=== PATIENT | female | born 1985 ===

== ENCOUNTER 2016-07-22 18:46 | Emergency (ER) | payer MEDICAID, OTHER ==
--- NOTE | 2016-07-22 19:31 | UC ---
General HPI - HPI Summary HPI Summary: The patient comes in today for: 1. Fall at work: Onset: This morning: When she work up, she had pain the upper thoracic and lower cervical spine. After falling, it was worse. Palliative/provocative: Moving head from side to side makes the neck pain worse. Quality: Aches. Region/radiation: Upper thoracic and lower cervical spine. Severity: 8.5/10 neck, 6/10 hand. Time: Constant. 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 She tripped and fell. She hit her left hand and "tweeked" her neck--she did not land on her neck. She had pain in the neck prior to the fall. Weakness/numbness: none except weakness in the left hand "because it hurts to pick things up." Treatment: She took Tylenol 1 PM for her neck. * - History of Current Complaint Stated Complaint: NECK & WRISTS INJURY FROM FALL Time Seen by Provider: 07/22/16 19:23 Hx Obtained From: Patient - Allergy/Home Medications Allergies/Adverse Reactions: Allergies Allergy/AdvReac Type Severity Reaction Status Date / Time No Known Allergies Allergy Verified 07/22/16 19:29 Home Medications: Home Medications Bupropion HCl [Wellbutrin Sr] 150 mg PO 07/22/16 [History] Risperidone 1 tab PO DAILY 07/22/16 [History Confirmed 07/22/16] PMH/Surg Hx/FS Hx/Imm Hx Previously Healthy: No Endocrine History Of: Denies: Diabetes, Thyroid Disease, Hyperthyroidism, Hypothyroidism, Dyslipidemia Cardiovascular History Of: Denies: Cardiac Disorders, Hypertension, Pacemaker/ICD, Myocardial Infarction , Congestive Heart Failure, Atrial Fibrillation, Deep Vein Thrombosis, Bleeding Disorders Respiratory History Of: Denies: COPD, Asthma, Bronchitis, Pneumonia, Pulmonary Embolism GI/ History Of: Denies: Gastroesophageal Reflux, Ulcer, Gastrointestinal Bleed, Gall Bladder Disease, Kidney Stones, Diverticulitis, Renal Disease, Urosepsis Neurological History Of: Denies: TIA, CVA, Dementia, Seizures, Migraine Psychological History Of: Reports: Depression, Bipolar Disorder, Post Traumatic Stress Disorder Denies: Anxiety, Schizophrenia Cancer History Of: Denies: Lung Cancer, Colorectal Cancer, Breast Cancer, Prostate Cancer, Cervical Cancer Other History Of: Negative For: HIV, Hepatitis B, Hepatitis C, Anticoagulant Therapy - Family History Known Family History: Positive: Cardiac Disease, Hypertension - Social History Occupation: Employed Full-time Alcohol Use: None Substance Use Type: None Smoking Status (MU): Former Smoker Review of Systems Constitutional: Negative Skin: Negative Eyes: Negative ENT: Negative Respiratory: Negative Cardiovascular: Negative Gastrointestinal: Negative Genitourinary: Negative Motor: Negative Musculoskeletal: Arthralgia, Myalgia All Other Systems Reviewed And Are Negative: Yes Physical Exam Triage Information Reviewed: Yes Appearance: Well-Appearing, No Pain Distress, Well-Nourished, Other: - Sitting still, she does not show signs of pain, but when moving her head, there is more. Vital Signs Reviewed: Yes Eyes: Positive: Conjunctiva Clear. Negative: Discharge ENT: Positive: Hearing grossly normal. Negative: Pharyngeal erythema, Nasal congestion, Nasal drainage, TM bulging, TM dull, TM red, Tonsillar swelling, Tonsillar exudate Dental: Negative: Gross Decay/Caries @, Dental Fracture @ Neck: Positive: Supple, No Lymphadenopathy. Negative: Nontender - There is tenderness to palpation of the musculature of the upper thoracic spine area. Respiratory: Positive: Chest non-tender, Lungs clear, No respiratory distress, No accessory muscle use. Negative: Crackles, Wheezing Cardiovascular: Positive: RRR, No Murmur Abdomen Description: Positive: Nontender, No Organomegaly, Soft. Negative: Distended, Guarding Musculoskeletal: Positive: No Edema, ROM Limited @ - She had very limited range of motion at extremes of motion (flexion, extension, bilateral rotation and bilateral flexion), but no tenderness to the neck--just the upper thoracic spine area musculature., Other: - Arms: The strength is appropriate for age and symmetrical. The DTR of the triceps, biceps, brachioradialis were 2+/2 x 2. Neurological: Positive: Alert, Muscle Tone Normal, Other: Psychological: Positive: Age Appropriate Behavior, Consolable Skin: Negative: rashes, breakdown Diagnostics - Laboratory Diagnostic Studies Completed/Ordered: Right hand x-ray: IMPRESSION: Normal left hand radiograph. - Radiology No standard instances Xray Interpretation: No Acute Changes Radiology Interpretation Completed By: Radiologist Course/Dx - Differential Dx - Multi-Symptom Provider Diagnoses: Contusion of the left hand. Muscular strain of the upper back/trapezius. Discharge - Discharge Plan Condition: Stable Disposition: HOME Patient Education Materials: Contusion in Adults (ED), Thoracic Back Strain (ED ) Forms: *Work Release Referrals: Kyra Azar PA [Primary Care Provider] - 1 Week (Please see your primary care provider in a week to see how you are doing. If you get worse, please be seen sooner.)
[2016-07-22] MEDS ORDERED: Ketorolac INJ* 60 MG/2 ML VIAL IM ONE (19:41)
--- NOTE | 2016-07-22 20:18 | RAD ---
INDICATION: The base of the left lung after fall COMPARISON: None. TECHNIQUE: 2 views of the left hand were obtained. FINDINGS: The adequately corticated bones are in normal alignment. No significant focal osseous abnormality or fracture is seen. Joint spaces appear maintained. IMPRESSION: Normal left hand radiograph. If the patient's symptoms persist, follow-up imaging is recommended.
== END 2016-07-22 20:36 | disposition home or self-care (01) ==
LOC: UCEAST 18:46
DX: S60.222A Contusion of left hand, initial encounter (principal); S29.012A Strain of muscle and tendon of back wall of thorax, initial encounter; W01.0XXA Fall on same level from slipping, tripping and stumbling without subsequent striking against object, initial encounter; Y93.F9 Activity, other caregiving; Y92.129 Unspecified place in nursing home as the place of occurrence of the external cause; Y99.0 Civilian activity done for income or pay; Z87.891 Personal history of nicotine dependence
CPT/HCPCS: 96372; 99202; G0463; J1885

== ENCOUNTER 2016-11-21 10:17 | Emergency (ER) | payer SELFPAY ==
--- NOTE | 2016-11-21 11:51 | UC ---
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 and she felt a pop in her lower abck pain in the lumbar area that radites to both sides constant dull aching pain any movement increases the pain nothing lessens the pain hasn't taken for pain denies fever , incontinence, no unintentinoal weight loss over the last 6 months - History of Current Complaint Chief Complaint: UCBackPain Stated Complaint: BACK INJURY Time Seen by Provider: 11/21/16 11:45 Hx Obtained From: Patient Hx Last Menstrual Period: "COUPLE MONTHS AGO"-IRREGULAR - Allergies/Home Medications Allergies/Adverse Reactions: Allergies Allergy/AdvReac Type Severity Reaction Status Date / Time No Known Allergies Allergy Verified 11/21/16 10:45 PMH/Surg Hx/FS Hx/Imm Hx Previously Healthy: Yes Psychological History: Depression, Bipolar Disorder, Post Traumatic Stress Disorder Other History Of: Negative For: HIV, Hepatitis B, Hepatitis C, Anticoagulant Therapy - Surgical History Surgical History: Yes Surgery Procedure, Year, and Place: Removal of ovarian cysts and polyps - Family History Known Family History: Positive: Cardiac Disease, Hypertension - Social History Alcohol Use: None Substance Use Type: None Smoking Status (MU): Former Smoker Type: Cigarettes When Did the Patient Quit Smoking/Using Tobacco: 5 YEARS AGO - Immunization History Most Recent Influenza Vaccination: 2015/2016 season Review of Systems Constitutional: Negative Skin: Negative Eyes: Negative ENT: Negative Respiratory: Negative Cardiovascular: Negative Gastrointestinal: Negative Genitourinary: Negative Motor: Negative Neurovascular: Negative Musculoskeletal: Other: - lower back pain Neurological: Negative Psychological: Negative All Other Systems Reviewed And Are Negative: Yes Physical Exam Triage Information Reviewed: Yes Appearance: No Pain Distress, Well-Nourished, Obese Vital Signs: Initial Vital Signs Temp 97.9 F 11/21/16 10:46 Pulse 77 11/21/16 10:46 Resp 16 11/21/16 10:46 BP 119/69 11/21/16 10:46 Pulse Ox 99 11/21/16 10:46 Vital Signs Reviewed: Yes Eyes: Positive: Conjunctiva Clear ENT: Positive: Pharynx normal, TMs normal Neck: Positive: Supple, No Lymphadenopathy Respiratory: Positive: Lungs clear, Normal breath sounds, No respiratory distress Cardiovascular: Positive: RRR, No Murmur, Pulses Normal Abdomen Description: Positive: Nontender, Soft Bowel Sounds: Positive: Present Musculoskeletal: Positive: Other: - Spine have no noted deformities or signs of inflammation. Curvature of thoracic, and lumbar spine are within normal limits. Bony features of shoulders and hips are of equal height bilaterally. Posture is upright, and gait is smooth and normal. Spinous processes of T1-L5 palpable, midline, and non-tender; No step-offs. left sided lumbar paraspinal tenderness. Flexion, extension, and rotation of the remaining spinal column is limited d/t pain Neurological: Positive: Alert, Other: - patellar reflexes intact, SLR negative, able to felx and extend toes Psychological Exam: Normal Skin Exam: Normal Back Pain Course/Dx - Course Course Of Treatment: exam completed. acute lower back pain d/t injurym, no red flags to warrant imaging. will treat with muscle relaxer, NSAIDS and referral to PT. no lifting more than 5 punds for 2 days - Differential Dx/Diagnosis Differential Diagnosis/HQI/PQRI: Herniated Disc, Strain, Sprain Provider Diagnoses: lower back pain Discharge - Discharge Plan Condition: Stable Disposition: HOME Prescriptions: Baclofen TAB* [Lioresal TAB*] 10 mg PO TID #12 tab Ibuprofen TAB* [Motrin TAB* 800 MG] 800 mg PO Q8H #30 tab Patient Education Materials: Low Back Strain (ED) Forms: *Work Release Referrals: Kyra Azar PA [Primary Care Provider] - Additional Instructions: Start baclofen as directed. Do not drink alcohol or drive while taking baclofen Please call physical therapy for further evaluation and treatment. Take ibuprofen for fever or pain. Increase fluids and rest. Please review your discharge instructions. If your symptoms do not improve please call your primary care provider or return to urgent care.
== END 2016-11-21 12:20 | disposition home or self-care (01) ==
LOC: UCEAST 10:17
DX: M54.5 Low back pain (principal); Z87.891 Personal history of nicotine dependence
CPT/HCPCS: 99212; G0463

== ENCOUNTER 2016-12-24 12:08 | Emergency (ER) | payer SELFPAY ==
--- NOTE | 2016-12-24 15:03 | UC ---
Back Pain HPI - HPI Summary HPI Summary: 31 y/o female presents to the urgent care c/o lower back pain since this morning while at work. 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 Now this morning, her back started to hurt again after she lifted a pt. Pain is now 8/10 specially with movement. Pt denies fever, SOB, chest pain, N/V/D, urinary symptoms or saddle anesthesia. - History of Current Complaint Hx Obtained From: Patient Hx Last Menstrual Period: october 2016 pt states it is irregular ?: No Onset/Duration: Sudden Onset, Lasting Hours Timing: Constant Severity Initially: Moderate Severity Currently: Moderate Pain Intensity: 8 Pain Scale Used: 0-10 Numeric Back Pain: Is Discrete @ - Lower back Character: Dull Aggravating: Movement, Lifting Alleviating: Rest Associated Signs And Symptoms: Positive: Pain with Weight Bearing. Negative: Swelling, Redness, Numbness, Tingling - Risk Factors AAA Risk Factors: Negative TAD Risk Factors: Negative Cauda Equina Risk Factors: Negative Epidural Abscess Risk Factors: Negative <Karlie Byrd - Last Filed: 12/24/16 17:53> <Pattie Palafox - Last Filed: 12/24/16 18:40> - History of Current Complaint Chief Complaint: UCBackPain Stated Complaint: BACK INJURY Time Seen by Provider: 12/24/16 14:45 - Allergies/Home Medications Allergies/Adverse Reactions: Allergies Allergy/AdvReac Type Severity Reaction Status Date / Time No Known Allergies Allergy Verified 11/21/16 10:45 Home Medications: Home Medications Hansen Carbonate TAB* 300 mg PO DAILY 12/24/16 [History Confirmed 12/24/16] PMH/Surg Hx/FS Hx/Imm Hx Previously Healthy: Yes Endocrine History: Other - Polycistic ovarian syndrome, Other Endocrine History: Polycistic ovarian syndrome, Psychological History: Depression, Bipolar Disorder Other History Of: Negative For: HIV, Hepatitis B, Hepatitis C, Anticoagulant Therapy - Surgical History Surgical History: Yes Surgery Procedure, Year, and Place: Removal of ovarian cysts and polyps - Family History Known Family History: Positive: Cardiac Disease, Hypertension - Social History Occupation: Employed Full-time Lives: With Family Alcohol Use: None Substance Use Type: None Smoking Status (MU): Former Smoker Type: Cigarettes When Did the Patient Quit Smoking/Using Tobacco: 5 YEARS AGO - Immunization History Most Recent Influenza Vaccination: season <Karlie Byrd - Last Filed: 12/24/16 17:53> Review of Systems Constitutional: Negative - Loer back pain s/p lifting a patient Skin: Negative Eyes: Negative ENT: Negative Respiratory: Negative Cardiovascular: Negative Gastrointestinal: Negative Genitourinary: Negative Motor: Negative Neurovascular: Negative Musculoskeletal: Other: - Back: Neurological: Negative Psychological: Negative All Other Systems Reviewed And Are Negative: Yes <BeckiejaKarlie cerna - Last Filed: 12/24/16 17:53> Physical Exam Triage Information Reviewed: Yes Appearance: Well-Appearing, No Pain Distress, Well-Nourished, Obese Vital Signs: Initial Vital Signs Temp 98.1 F 12/24/16 12:19 Pulse 89 12/24/16 12:19 Resp 18 12/24/16 12:19 BP 115/83 12/24/16 12:19 Pulse Ox 99 12/24/16 12:19 Vital Signs Reviewed: Yes Eye Exam: Normal Eyes: Positive: Conjunctiva Clear - PERRLA, EOMI, fundi grossly normal ENT Exam: Normal ENT: Positive: Normal ENT inspection, Hearing grossly normal, Pharynx normal, TMs normal Dental Exam: Normal Neck exam: Normal Neck: Positive: Supple, Nontender, No Lymphadenopathy Respiratory Exam: Normal Respiratory: Positive: Chest non-tender, Lungs clear, Normal breath sounds Cardiovascular Exam: Normal Cardiovascular: Positive: RRR, No Murmur, Pulses Normal, Brisk Capillary Refill Abdominal Exam: Normal Abdomen Description: Positive: Nontender, No Organomegaly, Soft. Negative: CVA Tenderness (R), CVA Tenderness (L) Bowel Sounds: Positive: Present Musculoskeletal Exam: Normal Musculoskeletal: Positive: Strength Intact, ROM Intact - B/L, No Edema, Other: - BACK: Patient walked into the urgent care room with symmetric ambulation, No signs of limping, antalgic, able to bear weight. No signs of trauma,Positive point tenderness and mild spasm in the Paraspinal muscles of the lumbar spine at the level of L4-L5. No masses palpated. No CVAT, no flank ecchymosis . No sacroiliac notch tenderness, No saddle anesthesia. Neurological Exam: Normal Psychological Exam: Normal Skin Exam: Normal <Karlie Byrd - Last Filed: 12/24/16 17:53> Vital Signs: Initial Vital Signs Temp 98.1 F 12/24/16 12:19 Pulse 89 12/24/16 12:19 Resp 18 12/24/16 12:19 BP 115/83 12/24/16 12:19 Pulse Ox 99 12/24/16 12:19 <Pattie Palafox - Last Filed: 12/24/16 18:40> Back Pain Course/Dx - Course Course Of Treatment: 31 y/o female presents to the urgent care c/o lower back pain since this morning while at work. 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 Now this morning, her back started to hurt again after she lifted a pt. Pain is now 8/ 10 specially with movement. Pt denies fever, SOB, chest pain, N/V/D, urinary symptoms or saddle anesthesia. Hx obtained. PE abnormal findings: BACK: Patient walked into the urgent care room with symmetric ambulation, No signs of limping, antalgic, able to bear weight. No signs of trauma,Positive point tenderness and mild spasm in the Paraspinal muscles of the lumbar spine at the level of L4-L5. No masses palpated. No CVAT, no flank ecchymosis . No sacroiliac notch tenderness, No saddle anesthesia. Pt Rx Flexeril and Ibuprofen 800mg PO q6-8hrs prn to alleviate symptoms. Advised to wear a back support at all times and f/u with PCP or Orthopedic doctor is symptoms do not improve. Pt understood and agreed. Left the clinic ambulating. - Differential Dx/Diagnosis Differential Diagnosis/HQI/PQRI: Arthritis, Herniated Disc, Renal Colic, Strain , Sprain, Other - Lower back pain. Lowerback spasms Provider Diagnoses: Acute lower back pain. <Karlie Byrd - Last Filed: 12/24/16 17:53> Discharge <Karlie Byrd - Last Filed: 12/24/16 17:53> <Pattie Palafox - Last Filed: 12/24/16 18:40> - Discharge Plan Condition: Stable Disposition: HOME Prescriptions: Cyclobenzaprine TAB* [Flexeril 10 MG TAB*] 10 mg PO TID #15 tab Ibuprofen TAB* [Motrin TAB* 800 MG] 800 mg PO Q6H #30 tab Patient Education Materials: Low Back Strain (ED), Sacroiliitis (ED) Referrals: [facility] [place] PHYSICIAN REFERRAL [Outside] - 1 Week Non Staff,Doctor [Primary Care Provider] - Additional Instructions: Please take medications as instructed to alleviate symptoms. Place ice and rest. Please wear back support at all times at work. Please if symptoms do not improve please f/u with your PCP for further evaluation and treatment. Attestation Statement User Type: Provider - I was available for consult. This patient was seen by the [facility]. The patient was not presented to, seen by, or examined by me. -Donaldo <Pattie Palafox - Last Filed: 12/24/16 18:40>
== END 2016-12-24 15:16 | disposition home or self-care (01) ==
LOC: UCEAST 12:08
DX: F32.9 Major depressive disorder, single episode, unspecified (principal); Z87.891 Personal history of nicotine dependence; M54.5 Low back pain; X50.0XXA Overexertion from strenuous movement or load, initial encounter; Y93.F2 Activity, caregiving, lifting; Y92.122 Bedroom in nursing home as the place of occurrence of the external cause; Y99.0 Civilian activity done for income or pay
CPT/HCPCS: 99212; G0463